=== PATIENT | male | born 1960 | race Hispanic/Latino ===

== ENCOUNTER → 2021-01-10 | Outpatient (CLI) | payer OTHER | END | disposition home or self-care (01) | LOC: SHCH 15:36 | PROVIDERS: ATTEND Internal Medicine Cardiovascular Disease | DX: I42.9 Cardiomyopathy, unspecified (principal) | CPT/HCPCS: 93306; 93356 ==

== ENCOUNTER 2021-03-25 05:57 | Day surgery (SDC) | payer OTHER, MEDICARE ==
[2021-03-20 10:29] VITALS: BP 91/64
[2021-03-20 10:45] LABS: BASOPHILS % (AUTO) 0.6 % (0.0-5.0); EOSINOPHILS % (AUTO) 1.9 % (0.0-8.0); HEMATOCRIT 37.5 % (42-54); LYMPHOCYTES % (AUTO) 15.4 % (21.0-51.0); MEAN CORPUSCULAR HEMOGLOBIN 33.3 pg (27.0-33.0); MEAN CORPUSCULAR HGB CONC 32.3 g/dL (32.0-36.0); MEAN CORPUSCULAR VOLUME 103.3 fL (79-99); MONOCYTES % (AUTO) 10.7 % (3.0-13.0); NEUTROPHILS % (AUTO) 71.2 % (40.0-77.0); PLATELET COUNT (AUTO) 107 K/uL (130-400); RED BLOOD CELL COUNT(AUTO) 3.63 MIL/uL (4.50-6.20); RED CELL DISTRIBUTION WIDTH 16.3 % (11.0-15.5); WHITE BLOOD COUNT (AUTO) 5.3 K/uL (4.8-10.8)
[2021-03-20 10:53] LABS: CREATININE 6.4 mg/dL (0.5-1.5); POTASSIUM 4.8 mmol/L (3.5-5.1)
[2021-03-20 11:00] LABS: PROTHROMBIN TIME 34.5 SEC (9.6-11.6)
[2021-03-20 11:02] LABS: PARTIAL THROMBOPLASTIN TIME 42.2 SEC (26.3-35.5)
[2021-03-20 11:13] LABS: APPEARANCE,URINE TURBID (CLEAR); BILIRUBIN,URINE SMALL (NEGATIVE); COLOR,URINE YELLOW (YELLOW); GLUCOSE, URINE (UA) NEGATIVE (NEGATIVE); KETONES,URINE 15 mg/dL (NEGATIVE); LEUKOCYTE ESTERASE ,URINE MODERATE (NEGATIVE); NITRATE,URINE NEGATIVE (NEGATIVE); OCCULT BLOOD,URINE LARGE (NEGATIVE); PROTEIN,URINE >=300 mg/dL (NEGATIVE)
[2021-03-20 11:25] LABS: INR 3.55 (0.85-1.15)
[2021-03-20 11:34] LABS: BACTERIA,URINE Many /HPF (None Seen); SQUAMOUS EPITHELIAL CELL,UR Rare /HPF (0-2); WBC,URINE TNTC /HPF (0-1)
[~2021-03-25] VITALS: Ht 170.2 cm; Wt 67.5 kg
[2021-03-25] VITALS (10 sets, daily range): BP systolic 97–101; BP diastolic 64–72
[~2021-03-25 05:57] MED LIST: 0.9% NACL 500ML IV.SOLN 500 ML IV SCH; CARV6.25 PO; FOLI1TAB85 PO; INSU100I35 SQ; SACU1TAB PO; WARF3TAB59 PO
[2021-03-25] MEDS ORDERED: 0.9%NACL 1000ML 1,000 ML IV ONE (07:23)
[2021-03-25 07:33] LABS: INR 1.4 (0.85-1.15); PROTHROMBIN TIME 14.8 SEC (9.6-11.6)
[2021-03-25] MEDS ORDERED: BIVALIRUDIN 250 MG/VIAL IV ONE (07:44)
[2021-03-25] MEDS ORDERED: HEPARIN 10,000 UNIT/10ML (1,000 UNIT/ML) VIAL ONE (07:45)
[2021-03-25] MEDS ORDERED: LIDOCAINE HCL 400MG/20ML VIAL ONE (07:45)
[2021-03-25] MEDS ORDERED: FENTANYL CITRATE PF 50 MCG/1 ML 2ML VIAL ONE (07:45)
[2021-03-25] MEDS ORDERED: IOHEXOL 350 MG/ML 100ML INFUS..BTL IV ONE (07:45)
[2021-03-25] MEDS ORDERED: IOHEXOL-350 50ML VIAL IV ONE (07:45)
[2021-03-25] MEDS ORDERED: MIDAZOLAM HCL 1 MG/ML 2ML VIAL ONE (07:45)
[2021-03-25] MEDS ORDERED: NITROGLYCERIN 2 MG VIAL IV ONE (07:45)
[2021-03-25] MEDS ORDERED: DEXTROSE 50%-WATER 50 ML DISP.SYRIN IV PRN (09:00)
[2021-03-25] MEDS ORDERED: GLUCAGON 1MG KIT 1 MG ML IM PRN (09:00)
[2021-03-25] MEDS ORDERED: INSULIN HUMULIN R 100 UNIT/ML 3ML SQ SCH (11:30)
== END 2021-03-25 14:10 | disposition home or self-care (01) ==
LOC: DAH 05:57
PROVIDERS: ATTEND Internal Medicine Cardiovascular Disease
DX: I25.5 Ischemic cardiomyopathy (principal); I25.10 Atherosclerotic heart disease of native coronary artery without angina pectoris; I13.2 Hypertensive heart and chronic kidney disease with heart failure and with stage 5 chronic kidney disease, or end stage renal disease; E11.22 Type 2 diabetes mellitus with diabetic chronic kidney disease; N18.6 End stage renal disease; I50.42 Chronic combined systolic (congestive) and diastolic (congestive) heart failure; I23.6 Thrombosis of atrium, auricular appendage, and ventricle as current complications following acute myocardial infarction; Z95.810 Presence of automatic (implantable) cardiac defibrillator; Z79.01 Long term (current) use of anticoagulants; Z79.899 Other long term (current) drug therapy
CPT/HCPCS: 36415 ×2; 71045; 80048; 81001; 82948 ×3; 85025; 85610 ×2; 85730; 87077; 87088; 87186; 93005; 93458; A4215; A4216; A4221; A4222; A4223 ×3; A4606; A4663; C1760; C1894 ×2; J1644; J3490 ×2; J7030; Q9965; Q9967 ×2; J0583; J2250; J3010

== ENCOUNTER → 2024-03-07 | Outpatient (CLI) | payer OTHER ==
[~2024-03-07] MED LIST changes: -0.9% NACL 500ML IV.SOLN 500 ML IV SCH
== END | disposition home or self-care (01) ==
LOC: SHCH 12:17
PROVIDERS: ATTEND Internal Medicine Cardiovascular Disease
DX: I08.8 Other rheumatic multiple valve diseases (principal); I25.5 Ischemic cardiomyopathy
CPT/HCPCS: 93306